=== PATIENT | male | born 2000 | race American Indian/Alaskan Native ===

== ENCOUNTER 2020-12-11 13:25 | Emergency (ER) | payer MEDICAID, SELFPAY ==
--- NOTE | ~2020-12-11 | XR_ITS ---
EXAMINATION: XR pelvis 1-2V DATE: 12/11/2020 14:15 INDICATION: Pelvis injury and pain. TECHNIQUE: An anteroposterior view of the pelvis was obtained. COMPARISON: None. FINDINGS: Bone alignment is normal. No fracture. Joint spaces are well maintained. IMPRESSION: 1. Normal pelvis. Reviewed, dictated and finalized at location A. IMPRESSION: 1. Normal pelvis.
--- NOTE | ~2020-12-11 | XR_ITS ---
EXAMINATION: XR_[id number]_CR DATE: 12/11/2020 14:15 INDICATION: Chest injury. TECHNIQUE: A frontal view of the chest and 3 views of the right ribs and 3 views of the left ribs we re obtained. COMPARISON: None. FINDINGS: The chest demonstrates clear lungs without pneumonia, pleural effusion, or pneumothorax. Th e heart size is normal. IMPRESSION: 1. No rib fracture. Reviewed, dictated and finalized at location A. IMPRESSION: 1. No rib fracture.
--- NOTE | ~2020-12-11 | XR_ITS ---
EXAMINATION: XR wrist LT 2V DATE: 12/11/2020 14:16 INDICATION: Left wrist injury and pain. TECHNIQUE: 2 views of left wrist were obtained. COMPARISON: None. FINDINGS: Bone alignment is normal. No fracture. Joint spaces are well maintained. IMPRESSION: 1. Normal left wrist. Reviewed, dictated and finalized at location A. IMPRESSION: 1. Normal left wrist.
--- NOTE | ~2020-12-11 | XR_ITS ---
EXAMINATION: XR wrist RT 2V DATE: 12/11/2020 14:16 INDICATION: Right wrist injury and pain. TECHNIQUE: 2 views of right wrist were obtained. COMPARISON: None. FINDINGS: Bone alignment is normal. No fracture. Joint spaces are well maintained. IMPRESSION: 1. Normal right wrist. Reviewed, dictated and finalized at location A. IMPRESSION: 1. Normal right wrist.
[2020-12-11 13:45] VITALS: BP 136/81; PULSE 103; RESP 18; TEMP 37.1; O2SAT 97
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
[2020-12-11] MEDS: KETOROLAC (*BKC) 60 MG/2 ML VIAL IM (14:24)
== END 2020-12-11 15:09 | disposition home or self-care (01) ==
PROVIDERS: Emergency Provider Emergency Medicine
DX: S20.213A Contusion of bilateral front wall of thorax, initial encounter (principal); S60.212A Contusion of left wrist, initial encounter; S60.211A Contusion of right wrist, initial encounter; Y35.813A Legal intervention involving manhandling, suspect injured, initial encounter
CPT/HCPCS: 71111; 72170; 73100; 96372; 99284; J1885

== ENCOUNTER 2023-04-13 16:30 | Emergency (ER) | payer OTHER, BC, SELFPAY ==
--- NOTE | 2023-04-13 16:32 | ED.URI ---
HPI - URI/Sore Throat General Chief Complaint: Upper Respiratory Infection Stated Complaint: sore throat,chills Time Seen by Provider: 04/13/23 16:32 Source: patient Mode of arrival: ambulatory Limitations: no limitations History of Present Illness HPI Narrative: Tony is a 22-year-old male patient presenting to the clinic today with complaints of sore throat and chills x1 days. He denies any known fever. Thinks he may have strep throat. MD elicited complaint: sore throat Related Data Home Medications Medication Instructions Recorded Confirmed No Home Medications 04/13/23 04/13/23 Allergies Allergy/AdvReac Type Severity Reaction Status Date / Time No Known Allergies Allergy Verified 04/13/23 16:37 Review of Systems Review of Systems: Pertinent positives per HPI. Patient denies any rash, headache, visual changes, dizziness, cough, shortness of breath, chest pain, palpitations, nausea, vomiting, diarrhea, constipation, abdominal pain, or any urinary issues. PMFSH Social History Social History Gender identity (if verbalized by the patient): Male Comments At the time of my signature, I reviewed and agree with the nursing past medical, surgical, social, and family history. There is no relevant family history pertinent to the patient complaint. Exam Narrative: General: Well-developed, well nourished, in no apparent distress Head: Normocephalic, atraumatic Eyes: Pupils equally round and reactive to light bilaterally, EOM intact, sclera and conjunctive clear, no discharge, lids normal Ears: TMs intact and clear, ear canals clear, no drainage, grossly hearing normal. Nose: Nares patent, no discharge, no inflammation, no sinus tenderness. Mouth: Oral pharynx red with bilateral tonsillar enlargement and white exudate, without lesions or masses, good dentition, MMM. Neck: Supple, trachea midline, enlargement of anterior cervical nodes, no thyroid masses or goiter palpable. Cardio: Regular rate and rhythm, s1 and s2 normal, no murmur appreciated. Resp: Clear to auscultation bilaterally, no rhonchi, rales, wheezing or rubs Course Course Emergency Course: Portions of this record may have been created with voice recognition software. Level of Care: Express Care Visit Vital Signs Vital signs: Vital signs reviewed MDM - URI/Sore Throat MDM Narrative Medical decision making narrative: At the time of visit patient is resting comfortably on the exam table. Strep screen, COVID, flu, and mono testing was obtained. All testing was negative. I suspect patient has viral pharyngitis. Supportive measures were discussed with the patient he voiced understanding discharge instructions and agrees to treatment plan. Differential Diagnosis Differential diagnosis: Likely upper respiratory infection, otitis media, sinusitis, viral infection, bronchitis, influenza, pharyngitis and other (COVID) Discharge Plan Discharge Clinical Impression: Exudative pharyngitis Patient Disposition: Home, Self-Care Condition: Stable Instructions: Antibiotic Form, Pharyngitis (ED), Strep Throat (ED) Additional Instructions: Strep screen was negative in the clinic today. COVID, mono, and influenza testing were also negative We will send strep for culture if this comes back positive we will contact him place you on antibiotics at this time. I suspect you have viral pharyngitis. Increase fluids and stay well hydrated Tylenol/motrin for pain/fever Flonase and OTC antihistamines as directed Vicks vapor rub to open sinuses Sinus rinses for congestion Cepacol spray, cough drops, throat lozenges, warm tea with honey/lemon, gargle salt water to soothe throat BRAT diet for diarrhea Clear liquids x 24 hours then advance as tolerated for nausea/vomiting Go to the ED if you develop a worsening in your condition- high fever not controlled by Tylenol or M
[2023-04-13 16:48] VITALS: BP 111/60; PULSE 80; RESP 16; TEMP 37.1; O2SAT 100
== END 2023-04-13 17:45 | disposition home or self-care (01) ==
PROVIDERS: Emergency Provider Nurse Practitioner Family
DX: J02.9 Acute pharyngitis, unspecified (principal); Z20.822 Contact with and (suspected) exposure to COVID-19; J45.909 Unspecified asthma, uncomplicated
CPT/HCPCS: 36416; 86308; 87081; 87426; 87804; 87880; 99213; C9803; G0463

== ENCOUNTER 2023-04-17 01:28 | Emergency (ER) | payer OTHER, BC, SELFPAY ==
[2023-04-17] VITALS (18 sets, daily range): BP systolic 125–134; BP diastolic 69–76; PULSE 71–89; RESP 16; TEMP 36.9; O2SAT 94–100
--- NOTE | ~2023-04-17 | CT_ITS ---
CT scan of the Neck Technique: 2.5 mm axial scans were obtained through the neck after intravenous administration of 75 c c Omnipaque 350. Coronal and sagittal reconstructions of the neck were obtained. Dose reduction techn ique was used on this scan by utilizing automated exposure control and iterative reconstruction techn ique. The dose-length product (DLP) was 485.29 mGy-cm. Clinical History: Peritonsillar abscess Findings: There is enlargement and heterogeneity of the right palatine tonsil particular, with phlegmonous salmon ge. Questionable early developing abscess measuring 1.8 cm in diameter (coronal image 45).. There is infiltration of right parapharyngeal fat. There is bilateral level 2 cervical lymphadenopathy, presum ably reactive. Parotid and submandibular glands are unremarkable. There is mild deviation of the airw ay to the left related to the right palatine tonsillar enlargement. No other soft tissue masses identified. The thyroid gland appears normal. Images of the lung apices reveal no abnormalities. Impression: Right palatine tonsillitis/enlargement with phlegmonous change, and questionable early developing 1.8 cm peritonsillar abscess. Reactive cervical lymphadenopathy. Reviewed, dictated and finalized at location . Impression: Right palatine tonsillitis/enlargement with phlegmonous change, and questionabl e early developing 1.8 cm peritonsillar abscess. Reactive cervical lymphadenopathy.
[2023-04-17 02:40] LABS: Strep Group A RT-PCR NOT DETECTED (Negative)
[2023-04-17 02:47] LABS: Influenza A QL RT-PCR Negative (Negative); Influenza B QL RT-PCR Negative (Negative); SARS-CoV-2 RNA PCR Negative (Negative)
--- NOTE | 2023-04-17 02:47 | ED.GENADULT ---
HPI - General Adult General Chief complaint: Unspecified Stated complaint: Sore Throat Time Seen by Provider: 04/17/23 02:27 Source: patient Limitations: no limitations History of Present Illness HPI narrative: Patient is a 22-year-old male present to the emergency department for sore throat. Patient notes he recently developed chills and some slight dysphagia with a sore throat on Thursday and it seem like it was slightly on the left side however seems like it is a lot more on the right side for the past 1 day. Patient notes that he went to urgent care couple days ago and was told his strep test was negative and to do symptomatic care. Patient notes that he has not been on any recent antibiotics or had any recent strep throat. 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 Patient notes that he is having pain when swallowing and is now more constant and becoming more difficult to swallow. Patient notes that he tried Tylenol last at 8 PM tonight and has also been trying sore throat sprays and numbing medications. Patient denies chest pain, shortness of breath, vomiting, diarrhea, recent injuries, eye pain, vision changes, nasal congestion, headache. Patient admits to some mild right ear discomfort for the past 1 day in which he feels like his voice is rating up there and patient also admits to associated muffling of his voice. Patient denies history of diabetes. Related Data Allergies Allergy/AdvReac Type Severity Reaction Status Date / Time No Known Allergies Allergy Verified 04/17/23 02:05 Review of Systems Review of Systems: A 10 system review of systems was completed on the patient and is negative except for what is stated in the HPI. Nursing and ancillary documentation was reviewed. [facility] Social History Social History Gender identity (if verbalized by the patient): Male Comments At time of signature, I have reviewed and agree with nursing past medical, surgical, social and family history unless otherwise noted. Please see the nursing chart for further information. There is no relevant family history pertinent to the presenting complaint. Exam Narrative: CONST: No acute distress. Well nourished. HENMT: Head is normocephalic and atraumatic. Moist mucous membranes. EYES: No conjunctival icterus, injection, or pallor. PERRL. NECK: No meningeal signs. RESP: Able to speak in full sentences. CARDIO: Regular rate. Regular rhythm. 2+ radial pulses bilaterally. GI: Nondistended. SKIN: No rashes or lesions noted on exposed skin. NEURO: Oriented x3. Moves all extremities. PSYCH: Normal affect. HENMT: Head: normocephalic and atraumatic Ears: external ears normal, EAC's normal, mastoids normal bilaterally, no periauricular adenopathy and TM abnormal erythematous bilateral; not bulging Face/Nose/Sinus: Normal external nose present, Normal nasal mucous membranes and turbinates present and sinuses nontender Face and sinus: normal facial exam and face symmetric Mouth: Yes tongue normal, No drooling, Yes muffled voice and No trismus Teeth and gingiva: dentition normal Throat: abnormal tonsil bilateral erythema and exudates, peritonsillar mass on the right fluctuant and tender, posterior oropharynx abnormal erythema and uvula laterally displaced to the left Neck: Neck: lymphadenopathy bilateral anterior cervical shotty and tender Course Vital Signs Vital signs: Vital Signs Temperature 98.5 F 04/17/23 01:30 Pulse Rate 71 04/17/23 01:30 Respiratory Rate 16 04/17/23 01:30 Blood Pressure 133/69 04/17/23 01:30 Pulse Oximetry 99 04/17/23 01:30 Oxygen Delivery Room Air 04/17/23 01:30 Temperature 98.5 F 04/17/23 01:30 Pulse Rate 86 04/17/23 03:00 Respiratory Rate 16 04/17/23 01:30 Blood Pre
[2023-04-17] MEDS: methylPREDNISolone SOD SUCC 125 MG VIAL IV PUSH (03:05)
[2023-04-17] MEDS: AMPICILLIN SULB 3 GM/NS 100 ML 3 GM/100 ML VIAL IVPB (03:05)
[2023-04-17 03:17] LABS: Basophils Absolute Auto 0.1 K/mm3 (0.0-0.1); Basophils Percent Auto 0.3 % (0.2-1.2); Eosinophils Percent Auto 0.3 % (0-4.4); Hematocrit 41.4 % (42.0-52.0); Immature Granulocyte Absolute 0.05 K/mm3 (0.00-0.031); Immature Granulocyte Percent A 0.3 % (0-0.5); Lymphocytes Absolute Auto 1.82 K/mm3 (0.9-3.2); Lymphocytes Percent Auto 12.5 % (18.3-44.2); Mean Corpuscular HGB Conc 36.2 g/dl (32-36); Mean Corpuscular Hemoglobin 34.6 pg (26-34); Mean Corpuscular Volume 95.6 fl (80-100); Mean Platelet Volume 9.4 fl (7.4-10.4); Monocytes Absolute Auto 1.7 K/mm3 (0.1-0.6); Monocytes Percent Auto 11.3 % (2.6-8.5); Neutrophils Percent Auto 75.3 % (45.5-73.1); Platelet Count Result 253 k/mm3 (150-375); Red Blood Count 4.33 M/mm3 (4.6-6.20); Red Cell Distribution Width 11.2 % (11.5-14.5); White Blood Count 14.6 K/mm3 (4.5-10.0)
[2023-04-17 03:27] LABS: Anion Gap 7 mmol/L (8-16); Blood Urea Nitrogen 10 mg/dL (9-20); Calcium 9.4 mg/dL (8.4-10.2); Carbon Dioxide 32 mmol/L (22-30); Chloride 99 mmol/L (98-107); Estimated CRCL calculation 117 ml/min; Estimated Glomerular Filt Rate > 60; Glucose 97 mg/dL (65-110); Potassium 4.1 mmol/L (3.4-5.0); Sodium 138 mmol/L (137-145)
[2023-04-17] MEDS: HYDROcodone/acetaminophen (*CRX) 7.5-325 MG TABLET 1 TAB PO (03:57)
== END 2023-04-17 06:42 | disposition home or self-care (01) ==
PROVIDERS: Emergency Provider Student in an Organized Health Care Education/Training Program
DX: J36 Peritonsillar abscess (principal); Z20.822 Contact with and (suspected) exposure to COVID-19
CPT/HCPCS: 36415; 70491; 80048; 85025; 87636; 87651; 96365; 96375; 99284; A9270; J0295; J2930; Q9967